=== PATIENT | female | born 1995 | race African-American/Black ===

== ENCOUNTER 2018-06-19 00:47 | Emergency (ER) | payer SELFPAY ==
[~2018-06-19] VITALS: Ht 165.1 cm; Wt 61.4 kg
[2018-06-19] MEDS ORDERED: HYDROCODONE/ACETAMINOPHEN 5-325 MG TABLET PO ONE (01:45)
[2018-06-19] MEDS ORDERED: KETOROLAC TROMETHAMINE 60 MG/2 ML VIAL IM ONE (01:45)
[2018-06-19] MEDS ORDERED: IBUPROFEN 600 MG TABLET PO ONE (01:45)
[2018-06-19 03:14] VITALS: BP 97/58
== END 2018-06-19 04:38 | disposition home or self-care (01) ==
LOC: EMS 00:47
DX: S93.401A Sprain of unspecified ligament of right ankle, initial encounter (principal); S23.3XXA Sprain of ligaments of thoracic spine, initial encounter; S33.5XXA Sprain of ligaments of lumbar spine, initial encounter; S20.212A Contusion of left front wall of thorax, initial encounter; S50.01XA Contusion of right elbow, initial encounter; V43.54XA Car driver injured in collision with van in traffic accident, initial encounter; Y93.89 Activity, other specified; Y92.89 Other specified places as the place of occurrence of the external cause; Y99.8 Other external cause status
CPT/HCPCS: 29125; 71101; 72040; 72070; 72100; 73080; 73110; 73562; 73610; 81025; 96372; 99284; J1885